=== PATIENT | female | born 1970 | race Caucasian/White ===

== ENCOUNTER 2021-04-27 20:41 | Emergency (ER) | payer OTHER ==
[~2021-04-27] VITALS: Ht 160 cm; Wt 75.0 kg
[2021-04-27 21:18] VITALS: BP 125/82
== END 2021-04-28 01:00 | disposition left against medical advice (07) ==
LOC: EMS 20:44
DX: K08.89 Other specified disorders of teeth and supporting structures (principal); I10 Essential (primary) hypertension; F17.210 Nicotine dependence, cigarettes, uncomplicated
CPT/HCPCS: 99281; Z7502